=== PATIENT | female | born 1995 | race African-American/Black ===

== ENCOUNTER 2016-08-30 18:25 | Emergency (ER) | payer OTHER ==
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
--- NOTE | 2016-08-30 21:15 | C.PDOC ---
- HPI Time Seen by Provider: 08/30/16 19:13 Chief Complaint (Nursing): Trauma Past Medical History Vital Signs: Last Vital Signs Temp 97.9 F 08/30/16 18:55 Pulse 96 H 08/30/16 18:55 Resp 14 08/30/16 18:55 BP 129/85 08/30/16 18:55 Pulse Ox 97 08/30/16 18:55 - Social History Hx Alcohol Use: Yes Hx Substance Use: No - Immunization History Hx Tetanus Toxoid Vaccination: Yes Hx Influenza Vaccination: No Hx Pneumococcal Vaccination: No ED Course And Treatment O2 Sat by Pulse Oximetry: 97 Disposition - Disposition Disposition: HOME/ ROUTINE Disposition Time: 21:13 Condition: STABLE Additional Instructions: Follow up with your primary medical doctor or clinic in 2-5 days for further evaluation. Take medications as prescribed. Return to the emergency department at any time if symptoms persist or worsen. Prescriptions: Acetaminophen [Tylenol 325mg tab] 650 mg PO Q4 PRN #20 tab PRN Reason: Pain, Mild (1-3) Instructions: Head Injury (ED), Contusion in Adults (ED) - Clinical Impression Clinical Impression: Head contusion, Contusion of leg, Contusion of chest wall
[2016-08-30 22:12] VITALS: BP 120/70; PULSE 70; RESP 18; TEMP 98
[2016-08-30 22:53] VITALS: O2SAT 97
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
== END 2016-08-30 22:11 | disposition home or self-care (01) ==
LOC: C.ER 18:25
DX: S00.93XA Contusion of unspecified part of head, initial encounter (principal); S80.11XA Contusion of right lower leg, initial encounter; S20.219A Contusion of unspecified front wall of thorax, initial encounter; V78.1XXA Passenger on bus injured in noncollision transport accident in nontraffic accident, initial encounter; Y92.414 Local residential or business street as the place of occurrence of the external cause